=== PATIENT | female | born 1965 | race Caucasian/White ===

== ENCOUNTER 2016-06-13 13:38 | Emergency (ER) | payer OTHER ==
--- NOTE | 2016-06-13 14:06 | ER Document Report ---
ED Medical Screen (RME) - General Stated Complaint: CHEST AND BACK PAIN Notes: 51 yo female c/o mid sternal chest pain constant since 0830 this morning, radiates through to back. mild nausea. mild shortness of breath. no previous cardiac hx, + HTN, + DM. + smoker 1 ppd x 40yr. TRAVEL OUTSIDE OF THE [place] IN LAST 30 DAYS: No - Related Data Allergies/Adverse Reactions: morphine [Morphine] Allergy (Severe, Verified 07/20/15 11:59) Chest pain, elevated BP Past Medical History - Past Medical History Cardiac Medical History: Reports: Hx Hypercholesterolemia, Hx Hypertension Denies: Hx Coronary Artery Disease, Hx Heart Attack Pulmonary Medical History: Denies: Hx Asthma, Hx Bronchitis, Hx COPD, Hx Pneumonia, Hx Tuberculosis Neurological Medical History: Denies: Hx Cerebrovascular Accident, Hx Seizures Endocrine Medical History: Reports: Hx Diabetes Mellitus Type 2 GI Medical History: Denies: Hx Hepatitis, Hx Hiatal Hernia, Hx Ulcer Musculoskeltal Medical History: Denies Hx Arthritis Infectious Medical History: Denies: Hx Hepatitis Past Surgical History: Reports: Hx Abdominal Surgery - Bladder sling, Hx Appendectomy, Hx Section, Hx Cholecystectomy - 2007, Hx Hysterectomy - 1999, Hx Tonsillectomy. Denies: Hx Mastectomy, Hx Open Heart Surgery, Hx Pacemaker - Immunizations Hx Diphtheria, Pertussis, Tetanus Vaccination: Yes Physical Exam - Vital signs Vitals: Temp Pulse Resp BP Pulse Ox 98.0 F 59 L 18 148/73 H 99 06/13/16 13:59 06/13/16 13:59 06/13/16 13:59 06/13/16 13:59 06/13/16 13:59 Course - Vital Signs Vital signs: Temp Pulse Resp BP Pulse Ox 98.0 F 59 L 18 148/73 H 99 06/13/16 13:59 06/13/16 13:59 06/13/16 13:59 06/13/16 13:59 06/13/16 13:59
[2016-06-13 14:30] LABS: ABSOLUTE BASOPHILS # (AUTO) 0.1 10^3/uL (0.0-0.2); ABSOLUTE EOSINOPHILS # (AUTO) 0.2 10^3/uL (0.0-0.6); ABSOLUTE LYMPHOCYTES (AUTO) 2.6 10^3/uL (0.5-4.7); ABSOLUTE MONOCYTES (AUTO) 0.5 10^3/uL (0.1-1.4); ABSOLUTE NEUT (AUTO) 4.9 10^3/uL (1.7-8.2); BASOPHILS % (AUTO) 0.7 % (0-2); EOSINOPHILS % (AUTO) 2.5 % (0-6); HEMATOCRIT 43.8 % (36.0-47.0); HEMOGLOBIN 15.1 g/dL (12.0-15.5); HGB HCT DIFFERENCE 1.5; LYMPHOCYTES % (AUTO) 31.2 % (13-45); MEAN CORPUSCULAR HEMOGLOBIN 32.8 pg (27.0-33.4); MEAN CORPUSCULAR HGB CONC 34.4 g/dL (32.0-36.0); MEAN CORPUSCULAR VOLUME 95 fl (80-97); MONOCYTES % (AUTO) 6.5 % (3-13); RED CELL DISTRIBUTION WIDTH 13.1 % (11.5-14.0); SEGMENTED NEUTROPHILS % (AUTO) 59.1 % (42-78); WHITE BLOOD COUNT 8.4 10^3/uL (4.0-10.5)
[2016-06-13 14:37] LABS: APPEARANCE,URINE SLIGHTLY-CLOUDY; BILIRUBIN,URINE NEGATIVE (NEGATIVE); GLUCOSE, URINE NEGATIVE (NEGATIVE); KETONES,URINE TRACE mg/dL (NEGATIVE); LEUKOCYTE ESTERASE,URINE NEGATIVE (NEGATIVE); NITRITE,URINE NEGATIVE (NEGATIVE); PROTEIN,URINE NEGATIVE (NEGATIVE); URINE SPECIFIC GRAVITY 1.016; UROBILINOGEN,URINE NEGATIVE mg/dL (<2.0)
[2016-06-13 14:47] LABS: ALANINE AMINOTRANSFERASE 81 U/L (9-52); ALBUMIN 4.4 g/dL (3.5-5.0); ALKALINE PHOSPHATASE 72 U/L (38-126); ANION GAP 10 (5-19); ASPARTATE AMINO TRANSFERASE 44 U/L (14-36); BILIRUBIN,TOTAL 0.5 mg/dL (0.2-1.3); BLOOD UREA NITROGEN 13 mg/dL (7-20); CALCIUM 10.7 mg/dL (8.4-10.2); CARBON DIOXIDE 26 mmol/L (22-30); CHLORIDE 104 mmol/L (98-107); CREATINE KINASE 104 U/L (30-135); CREATININE RESULT 0.74 mg/dL (0.52-1.25); GLUCOSE 70 mg/dL (75-110); LIPASE 131.9 U/L (23-300); POTASSIUM 4.4 mmol/L (3.6-5.0); SODIUM 139.8 mmol/L (137-145); TOTAL PROTEIN 6.7 g/dL (6.3-8.2)
[2016-06-13 14:59] LABS: CREATINE KINASE MB 2.92 ng/mL (<4.55)
[2016-06-13 15:00] LABS: TROPONIN I < 0.012 ng/mL
--- NOTE | 2016-06-13 19:49 | ER Document Report ---
ED General - General Chief Complaint: Chest Pain Stated Complaint: CHEST AND BACK PAIN Notes: Patient is a 51-year-old female with past medical history of diabetes, hypertension, hyperlipidemia, no prior cardiac history who presents with 12 hours of chest pain. Describes the pain as a central, pressure-like sensation. It has been constant since onset. Nothing improves or worsens the pain. States that the pain does radiate into her left scapula. Denies a history of similar symptoms in the past. No history of DVT or pulmonary embolus. Denies any shortness of breath, nausea, vomiting, diaphoresis, or syncope. She has not in her primary care physician regarding today's concerns. States that she feels her symptoms are related to stress at work. TRAVEL OUTSIDE OF THE [place] IN LAST 30 DAYS: No - Related Data Allergies/Adverse Reactions: morphine [Morphine] Allergy (Severe, Verified 06/13/16 14:04) Chest pain, elevated BP Past Medical History - General Information source: Patient - Social History Smoking Status: Current Every Day Smoker Chew tobacco use (# tins/day): No Frequency of alcohol use: None Drug Abuse: None Lives with: Spouse/Significant other Family History: Reviewed & Not Pertinent Patient has suicidal ideation: No Patient has homicidal ideation: No - Past Medical History Cardiac Medical History: Reports: Hx Hypercholesterolemia, Hx Hypertension Denies: Hx Coronary Artery Disease, Hx Heart Attack Pulmonary Medical History: Denies: Hx Asthma, Hx Bronchitis, Hx COPD, Hx Pneumonia, Hx Tuberculosis Neurological Medical History: Denies: Hx Cerebrovascular Accident, Hx Seizures Endocrine Medical History: Reports: Hx Diabetes Mellitus Type 2 Renal/ Medical History: Denies: Hx Peritoneal Dialysis GI Medical History: Denies: Hx Hepatitis, Hx Hiatal Hernia, Hx Ulcer Musculoskeltal Medical History: Denies Hx Arthritis Infectious Medical History: Denies: Hx Hepatitis Past Surgical History: Reports: Hx Abdominal Surgery - Bladder sling, Hx Appendectomy, Hx Section, Hx Cholecystectomy - 2007, Hx Hysterectomy, Hx Tonsillectomy. Denies: Hx Mastectomy, Hx Open Heart Surgery, Hx Pacemaker - Immunizations Hx Diphtheria, Pertussis, Tetanus Vaccination: Yes Review of Systems - Review of Systems Notes: Constitutional: Negative for fever. HENT: Negative for sore throat. Eyes: Negative for visual changes. Cardiovascular: Positive for chest pain. Respiratory: Negative for shortness of breath. Gastrointestinal: Negative for abdominal pain, vomiting or diarrhea. Genitourinary: Negative for dysuria. Musculoskeletal: Negative for back pain. Skin: Negative for rash. Neurological: Negative for headaches, weakness or numbness. 10 point ROS negative except as marked above and in HPI. Physical Exam - Vital signs Vitals: Temp Pulse Resp BP Pulse Ox 98.0 F 59 L 18 148/73 H 99 06/13/16 13:59 06/13/16 13:59 06/13/16 13:59 06/13/16 13:59 06/13/16 13:59 Interpretation: Bradycardic Notes: PHYSICAL EXAMINATION: GENERAL: Well-appearing, well-nourished and in no acute distress. HEAD: Atraumatic, normocephalic. EYES: Pupils equal round and reactive to light, extraocular movements intact, sclera anicteric, conjunctiva are normal. ENT: nares patent, oropharynx clear without exudates. Moist mucous membranes. NECK: Normal range of motion, supple without lymphadenopathy LUNGS: Breath sounds clear to auscultation bilaterally and equal. No wheezes rales or rhonchi. HEART: Regular rate and rhythm without murmurs ABDOMEN: Soft, nontender, normoactive bowel sounds. No guarding, no rebound. No masses appreciated. EXTREMITIES: Normal range of motion, no pitting or edema. No cyanosis. NEUROLOGICAL: No focal neurological deficits. Moves all extremities spontaneously and on command. PSYCH: Normal mood, normal affect. SKIN: Warm, Dry, normal turgor, no rashes or lesions noted. Course - Re-evaluation Re-evalutation: 06/13/16 19:47 Presentation of chest pain in an otherwise well appearing patient. Low clinical suspicion for ACS given clinical history, exam, EKG without ST elevations or depressions, and negative initial troponin. HEART score less than or equal to 3. PE also seems unlikely given clinical history, absence of tachycardia or dyspnea. Well's score is 0. CXR without evidence of pneumothorax or pneumonia. No widened mediastinum. Aortic dissection also seems unlikely given history, symmetric pulses, CXR, and vitals. HEART Score: History:0 EC Age:1 Risk Factors:2 Troponin:0 Total: 3 06/13/16 21:21 Second troponin remains negative. Final assessment: Chest pain in a patient without evidence of cardiac or other serious etiology on workup today. I discussed with patient that, based on their age, risk factors and emergency department testing today, the likelihood that their symptoms are related to a heart attack is very low (estimated risk of heart attack or over the next 30 days of less than 1%). The patient demonstrates decision making capacity and has verbalized an understanding of these risks to me. Based on this, the patient has chosen to follow-up as an outpatient. Usual chest pain return precautions reviewed. The patient states understanding and agreement with this plan. - Vital Signs Vital signs: Temp Pulse Resp BP Pulse Ox 97.9 F 59 L 19 112/80 98 06/13/16 22:15 06/13/16 13:59 06/13/16 22:28 06/13/16 22:14 06/13/16 21:52 - Laboratory Result Diagrams: 06/13/16 14:10 06/13/16 14:10 Laboratory results interpreted by me: 06/13/16 06/13/16 14:10 14:10 Glucose 70 L Calcium 10.7 H AST 44 H ALT 81 H Urine Ketones TRACE H - Diagnostic Test Radiology reviewed: Image reviewed, Reports reviewed Radiology results interpreted by me: 06/13/16 19:48 Chest x-ray: No acute infiltrate - EKG Interpretation by Me Additional EKG results interpreted by me: 06/13/16 19:48 NSR, rate 60. Qtc 440. No ST elevations or depressions. Discharge - Discharge Clinical Impression: Chest pain Qualifiers: Chest pain type: unspecified Qualified Code(s): R07.9 - Chest pain, unspecified Condition: Good Disposition: HOME, SELF-CARE Additional Instructions: You were seen today for chest pain. The exact cause of your pain is unclear. However, based on your cardiac enzyme testing, chest x-ray, and EKG it does not appear that it is from an immediately life-threatening cause at this time. Although your testing here is normal is critical that you follow-up with your primary care physician for continued evaluation of this chest pain and possible stress testing. I recommended you see your physician within the next 24-48 hours to be evaluated for consideration of a stress test. Please return to emergency department immediately if you have worsening of your chest pain, shortness of breath, vomiting, become unable to exert yourself due to pain or difficulty breathing, you pass out, or have any pain that radiates into your arms, jaw, or back. Please also return if you have any additional symptoms that are concerning to you. Referrals: BRUNA SANTIAGO MD [Primary Care Provider] - Follow up in 3-5 days
[2016-06-14 03:26] VITALS: BP 112/80
--- NOTE | 2016-06-14 08:14 | EKG REPORT ---
SEVERITY:- NORMAL ECG - SINUS RHYTHM : Confirmed by: Linda Alejandro MD 14-Jun-2016 08:12:50
== END 2016-06-13 22:20 | disposition home or self-care (01) ==
LOC: ER 13:38
DX: R07.9 Chest pain, unspecified (principal); M54.9 Dorsalgia, unspecified; E11.9 Type 2 diabetes mellitus without complications; I10 Essential (primary) hypertension; E78.5 Hyperlipidemia, unspecified; F17.210 Nicotine dependence, cigarettes, uncomplicated
CPT/HCPCS: 36415; 71020; 80053; 81001; 82550; 82553; 83690; 84484; 85025; 93005; 93010; 99285

== ENCOUNTER 2016-09-05 20:09 | Emergency (ER) | payer OTHER ==
--- NOTE | 2016-09-05 22:24 | ER Document Report ---
ED General - General Chief Complaint: Difficulty Swallowing Stated Complaint: FOOD STUCK IN THROAT Time Seen by Provider: 09/05/16 22:10 Mode of Arrival: Ambulatory Information source: Patient TRAVEL OUTSIDE OF THE [place] IN LAST 30 DAYS: No - HPI Notes: 51-year-old female presents with dysphagia after eating [place] beef approximately 7:15 PM. Slight sensation of food bolus and it feels like it is in the mid to upper chest towards the suprasternal notch. She does have some pain with deep inspiration. She has been able to take liquids but has been too scared to try solids. No difficulty with breathing or passing saliva. There is some pain radiating towards her left neck almost to her ear. There were no bones and no other significant hard pieces but she does admit to not chewing very well. Denies nausea or vomiting. No abdominal pain. No prior history of esophageal stricture or dilatation. She has had distant endoscopy which was normal. Denies cough or aspiration type symptoms. - Related Data Allergies/Adverse Reactions: morphine [Morphine] Allergy (Severe, Verified 06/13/16 14:04) Chest pain, elevated BP Past Medical History - Social History Smoking Status: Current Every Day Smoker Family History: Reviewed & Not Pertinent Patient has suicidal ideation: No Patient has homicidal ideation: No - Past Medical History Cardiac Medical History: Reports: Hx Hypercholesterolemia, Hx Hypertension Denies: Hx Coronary Artery Disease, Hx Heart Attack Pulmonary Medical History: Denies: Hx Asthma, Hx Bronchitis, Hx COPD, Hx Pneumonia, Hx Tuberculosis Neurological Medical History: Denies: Hx Cerebrovascular Accident, Hx Seizures Endocrine Medical History: Reports: Hx Diabetes Mellitus Type 2 Renal/ Medical History: Denies: Hx Peritoneal Dialysis GI Medical History: Denies: Hx Hepatitis, Hx Hiatal Hernia, Hx Ulcer Musculoskeltal Medical History: Denies Hx Arthritis Infectious Medical History: Denies: Hx Hepatitis Past Surgical History: Reports: Hx Abdominal Surgery - Bladder sling, Hx Appendectomy, Hx Section, Hx Cholecystectomy - 2007, Hx Hysterectomy, Hx Tonsillectomy. Denies: Hx Mastectomy, Hx Open Heart Surgery, Hx Pacemaker - Immunizations Hx Diphtheria, Pertussis, Tetanus Vaccination: Yes Review of Systems - Review of Systems -: Yes All other systems reviewed and negative Physical Exam - Vital signs Vitals: Temp Pulse Resp BP Pulse Ox 97.9 F 70 18 166/85 H 96 09/05/16 20:53 09/05/16 20:53 09/05/16 20:53 09/05/16 20:53 09/05/16 20:53 - Notes Notes: GENERAL: VS as per nursing doc. Well-appearing, well-nourished and in no acute distress. HEAD: Atraumatic, normocephalic. EYES: Pupils equal round and reactive to light, extraocular movements intact, sclera anicteric, no conjunctival injection or discharge. ENT: Nares patent, oropharynx clear without exudates, moist mucous membranes.TM is normal. NECK: Normal range of motion, supple without lymphadenopathy.Oropharynx is patent and there is no foreign body noted. Normal swallowing mechanism. No stridor LUNGS: Breath sounds clear to auscultation bilaterally and equal. No wheezes rales or rhonchi. HEART: Regular rate and rhythm without murmurs. ABDOMEN: Soft, non-tender, No mass noted EXTREMITIES: No edema. NEUROLOGICAL: Normal speech. Normal sensory and motor exams. Gait intact PSYCH: Normal mood, normal affect. SKIN: Warm, dry, normal turgor, no lesions noted. Course - Re-evaluation Re-evalutation: 09/05/16 22:29 Discussed differential diagnosis including Boerhaave syndrome or other esophageal perforation, esophageal injury such as abrasion, retained food bolus , patient is a smoker but does not drink alcohol so a stricture could be present. She understands she will need endoscopy at some point. This point we will initially start with a chest x-ray and proceed at that point. 09/06/16 01:03 Patient x-ray was negative. My plan was to see how the patient did with the GI cocktail and contact GI cellulose insulation helper Dr. Ellis. It has not been given the GI cocktail that has been ordered and appears to be tired of waiting. I will give them Dr. Ellis's number for follow-up. - Vital Signs Vital signs: Temp Pulse Resp BP Pulse Ox 97.9 F 70 14 166/85 H 96 09/05/16 20:53 09/05/16 20:53 09/05/16 22:20 09/05/16 20:53 09/05/16 20:53 Discharge - Discharge Clinical Impression: Odynophagia Condition: Good Disposition: HOME, SELF-CARE Additional Instructions: Return for worsening or concern. Please contact Dr. Ellis's office in the morning. I would suggest Maalox or Mylanta to coat the esophagus if it seems to help the pain. Forms: Smoking Cessation Education Referrals: AKUA ELLIS MD [ACTIVE STAFF] - Follow up tomorrow (Call in the morning to arrange follow-up.)
[2016-09-06] MEDS ORDERED: LIDOCAINE 2% VISCOUS SOLN 20 ML UDCUP PO ONE (00:12)
[2016-09-06] MEDS ORDERED: MAG HYDROX/AL HYDROX/SIMETH SUSP 30 ML UDCUP PO ONE (00:13)
[2016-09-06 01:15] VITALS: BP 164/76
== END 2016-09-06 01:15 | disposition home or self-care (01) ==
LOC: ER 20:09
DX: R13.10 Dysphagia, unspecified (principal); F17.200 Nicotine dependence, unspecified, uncomplicated; E78.00 Pure hypercholesterolemia, unspecified; I10 Essential (primary) hypertension; E11.9 Type 2 diabetes mellitus without complications; Z88.6 Allergy status to analgesic agent; Z90.49 Acquired absence of other specified parts of digestive tract; Z90.710 Acquired absence of both cervix and uterus
CPT/HCPCS: 71020; 99284

== ENCOUNTER 2016-09-07 10:35 | Day surgery (SDC) | payer OTHER ==
[2016-09-07] MEDS ORDERED: ONDANSETRON HCL INJ/PF 4 MG/2 ML SDV ONE (11:51)
[2016-09-07] MEDS ORDERED: NALOXONE HCL INJ/PF 0.4 MG/1 ML SDV ONE (11:51)
[2016-09-07] MEDS ORDERED: DIPHENHYDRAMINE HCL 50 MG/ML VIAL ONE (11:51)
[2016-09-07] MEDS ORDERED: FLUMAZENIL INJ 0.5 MG/5 ML VIAL IV ONE (11:52)
[2016-09-07] MEDS ORDERED: EPINEPHRINE INJ 1 MG/10 ML DISP.SYRIN ONE (11:52)
[2016-09-07] MEDS ORDERED: FENTANYL CITRATE INJ/PF 100 MCG/2 ML AMPUL ONE (11:52)
[2016-09-07] MEDS ORDERED: GLUCAGON,HUMAN RECOMB 1 MG INJ ONE (11:52)
[2016-09-07] MEDS: MIDAZOLAM 2 MG/2 ML INJ ONE ×3 (12:15→12:25)
--- NOTE | 2016-09-07 12:35 | Operative Report ---
Operative Report DATE OF SURGERY: 09/07/16 Operative Report: The risks benefits and alternatives of the procedure explained to the patient in detail and informed consent is obtained.A GIF Olympus video scope was inserted into the patient's mouth and hypopharynx, the esophagus is identified intubated and insufflated, the scope was then advanced through the esophagus stomach and duodenum, retroflexion maneuver is done ,the esophagus stomach and first and second portions of the duodenum examined PREOPERATIVE DIAGNOSIS: Possible food bolus impaction POSTOPERATIVE DIAGNOSIS: Esophagitis noted approximately 2 cm distal from the upper esophageal sphincter. Likely had a food bolus impaction now has cleared, rest of the esophagus normal. Gastritis. Duodenitis OPERATION: EGD with biopsy SURGEON: AKUA ELLIS ANESTHESIA: Moderate Sedation - 50 mg of Benadryl, 5 mg of Versed, 4 mg of Zofran. Conscious sedation monitoring time 30 minutes TISSUE REMOVED OR ALTERED: Gastric mucosal specimen obtained to rule out Helicobacter pylori COMPLICATIONS: None. ESTIMATED BLOOD LOSS: None. INTRAOPERATIVE FINDINGS: As described above. PROCEDURE: Patient tolerated the procedure well. No immediate postprocedure complications. Patient discharged in good condition. Discharge date 09/07/2016. Discharge diet: Regular. Discharge activity: Regular. 2-3 week follow-up to discuss findings. Patient is instructed to call the office or proceed to the emergency room should there be any further problems or questions. We will wait on biopsies.
[2016-09-07 13:34] VITALS: BP 125/69
== END 2016-09-07 13:40 | disposition home or self-care (01) ==
LOC: END 10:35
PROVIDERS: ATTEND Internal Medicine Gastroenterology
PROC: 0DB68ZX Excision of Stomach, Via Natural or Artificial Opening Endoscopic, Diagnostic (ICD-10-PCS; principal; 2016-09-07 11:00)
DX: K20.9 Esophagitis, unspecified (principal); K31.9 Disease of stomach and duodenum, unspecified; K29.80 Duodenitis without bleeding; T18.108S Unspecified foreign body in esophagus causing other injury, sequela; E11.9 Type 2 diabetes mellitus without complications; F17.210 Nicotine dependence, cigarettes, uncomplicated; E78.5 Hyperlipidemia, unspecified; I10 Essential (primary) hypertension; E07.9 Disorder of thyroid, unspecified; Z88.5 Allergy status to narcotic agent; Z88.8 Allergy status to other drugs, medicaments and biological substances; Z79.84 Long term (current) use of oral hypoglycemic drugs; Z79.899 Other long term (current) drug therapy
CPT/HCPCS: 43239; 82962; 88342 ×2; 88305 ×2; J2250; J1200; J2405; J0171; J1610; J2310; J3010; J3490

== ENCOUNTER 2019-02-09 09:35 | Day surgery (SDC) | payer OTHER ==
[~2019-02-09 09:35] MED LIST: PROPOFOL INJ 200 MG/20 ML VIAL IV ONE
[2019-02-09 10:49] VITALS: BP 144/92
--- NOTE | 2019-02-09 12:42 | Operative Report ---
Operative Report DATE OF SURGERY: 02/09/19 Operative Report: The risks, benefits and alternatives of the procedure including the risk of bleeding, perforation requiring surgery have been explained to the patient in detail and informed consent has been obtained. The patient is placed in a left, lateral decubital position. Timeout was called. Propofol medication is administered. Rectal examination is done which did not reveal any masses, tears or fissures. An Olympus videoscope was introduced into the patient's rectum. Scope was then carefully advanced all the way to the cecum. Cecum was identified by the usual anatomical landmarks of the ileocecal valve as well as the appendiceal office. Photodocumentation is obtained. Scope was then sequentially pulled back via the various segments of the colon including the ascending colon, hepatic flexure, transverse colon, splenic flexure, descending colon finding to the rectosigmoid portions of the colon. Retroflexion maneuvers performed. PREOPERATIVE DIAGNOSIS: Change in bowel habits POSTOPERATIVE DIAGNOSIS: Terminal ileitis rule out Crohn's disease. Right side colon biopsy rule out collagenous colitis. Internal hemorrhoids OPERATION: Colonoscopy with biopsy SURGEON: AKUA ELLIS ANESTHESIA: LMAC TISSUE REMOVED OR ALTERED: As noted above. COMPLICATIONS: None. ESTIMATED BLOOD LOSS: None. INTRAOPERATIVE FINDINGS: As noted above. PROCEDURE: Patient tolerated the procedure well. No immediate postprocedure complications are noted. Patient is discharged in good condition. Discharge date 02/09/2019. Discharge diet: Regular. Discharge activity: Regular. 2 to 3-week follow-up to discuss findings. Patient is instructed to call the office or proceed to the emergency room should there be any further problems or questions. Wait on the pathology.
== END 2019-02-09 10:48 | disposition home or self-care (01) ==
LOC: END 09:35
PROVIDERS: ATTEND Internal Medicine Gastroenterology
DX: R19.4 Change in bowel habit (principal); F17.210 Nicotine dependence, cigarettes, uncomplicated; K64.8 Other hemorrhoids
CPT/HCPCS: 45380; 82962; 88305 ×2; J2704; 811